=== PATIENT | male | born 1990 | race Two or more races ===

== ENCOUNTER 2020-02-23 14:43 | Emergency (ER) | payer MEDICAID ==
[~2020-02-23] VITALS: Ht 185.4 cm; Wt 74.8 kg
[~2020-02-23 14:43] MED LIST: CLON1TAB; HYDR-1421; HYDR7.5T; LORA2TAB89
[2020-02-23 14:58] VITALS: BP 108/58
== END 2020-02-23 17:12 ==
LOC: ER 14:43
DX: S30.1XXA Contusion of abdominal wall, initial encounter (principal); S80.812A Abrasion, left lower leg, initial encounter; F19.10 Other psychoactive substance abuse, uncomplicated; W22.8XXA Striking against or struck by other objects, initial encounter; Y93.89 Activity, other specified; Y92.89 Other specified places as the place of occurrence of the external cause; Y99.8 Other external cause status

== ENCOUNTER 2020-10-26 16:25 | Emergency (ER) | payer MEDICAID ==
[~2020-10-26] VITALS: Ht 188 cm; Wt 79.4 kg
[2020-10-26] MEDS ORDERED: SODIUM CHLORIDE 0.9% 1,000 ML IV ONE (16:30)
[2020-10-26 17:11] LABS: Basophils # (auto) 0.1 10 ^3/uL (0-0.2); Basophils % (auto) 0.8 % (0.0-2.0); Eosinophils # (auto) 0 10 ^3/uL (0-0.8); Eosinophils % (auto) 0.3 % (0.0-7.0); Hematocrit 45.9 % (41.0-53.0); Lymphocytes # (auto) 2.7 10 ^3/uL (0.4-5.4); Lymphocytes % (auto) 25.9 % (10.0-50.0); Mean Corpuscular Hemoglobin 30.4 pg (28.0-32.0); Mean Corpuscular Hgb Conc. 34.8 g/dL (32.0-36.0); Mean Corpuscular Volume 87.2 fL (80.0-100.0); Neutrophils # (auto) 6.5 10 ^3/uL (1.6-8.6); Nucleated Red Blood Cells % 0.1 %; Platelet Count (auto) 277 10^3/uL (140-450); Red Blood Cells 5.27 10^6/uL (4.5-5.90); White Blood Cell 10.3 10^3/uL (4.4-10.8)
[2020-10-26 17:22] LABS: Albumin 4.2 g/dL (3.4-5.0); Calcium 9.5 mg/dL (8.5-10.1); Potassium 3.8 mmol/L (3.5-5.1)
[2020-10-26 17:23] LABS: Salicylate < 1.7 mg/dL (2.8-20.0)
[2020-10-26 17:25] LABS: Bilirubin, Total 0.5 mg/dL (0.2-1.0); Total Protein 9.1 g/dL (6.4-8.2)
[2020-10-26 18:06] LABS: Acetaminophen < 2.0 ug/mL (10-30)
[2020-10-26 19:58] LABS: Alcohol, Urine < 3.0 mg/dL (0-10); Amphetamine Screen, Urine POSITIVE (NEGATIVE); Barbiturate Scree,Urine NEGATIVE (NEGATIVE); Benzodiazephine Screen, Urine NEGATIVE (NEGATIVE); Cannabinoid Screen, Urine NEGATIVE (NEGATIVE); Cocaine Screen, Urine NEGATIVE (NEGATIVE)
[2020-10-26 20:26] LABS: Phencyclidine Screen, Urine POSITIVE (NEGATIVE)
[2020-10-26 20:28] LABS: Opiate Scree,Urine POSITIVE (NEGATIVE)
[2020-10-26 23:11] VITALS: BP 112/61
== END 2020-10-26 22:30 | disposition home or self-care (01) ==
LOC: ER 16:25 → EDBD 16:25 → ER 22:30
DX: F11.10 Opioid abuse, uncomplicated (principal); F15.10 Other stimulant abuse, uncomplicated; F12.10 Cannabis abuse, uncomplicated; F17.210 Nicotine dependence, cigarettes, uncomplicated
CPT/HCPCS: 36415; 80053; 80307; 80320; 80329; 85025; 93005; 96360; 96361